=== PATIENT | male | born 1995 | race Caucasian/White ===

== ENCOUNTER 2017-05-15 02:29 | Emergency (ER) | payer OTHER ==
[2017-05-15 02:58] VITALS: BP 0/0
== END 2017-05-15 02:40 | disposition left against medical advice (07) ==
LOC: ED 02:29
DX: S05.30XA Ocular laceration without prolapse or loss of intraocular tissue, unspecified eye, initial encounter (principal); Z53.21 Procedure and treatment not carried out due to patient leaving prior to being seen by health care provider; X58.XXXA Exposure to other specified factors, initial encounter; Y92.9 Unspecified place or not applicable
CPT/HCPCS: 99281

== ENCOUNTER 2017-05-15 17:52 | Emergency (ER) | payer OTHER ==
[2017-05-15 18:08] VITALS: BP 136/88
[2017-05-15] MEDS ORDERED: Lidocaine 1% MPF* 2 ML VIAL INJ ONE (18:37)
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
--- NOTE | 2017-05-15 19:05 | RAD ---
INDICATION: Left orbital injury COMPARISON: None TECHNIQUE: Multiple views the orbits were obtained. FINDINGS: There is no plain radiographic evidence of orbital injury. The remaining visualized facial bones also demonstrate a normal plain radiographic appearance. There may be best ethmoid sinus disease. The remainder of the precise paranasal sinuses are clear IMPRESSION: NO ACUTE PLAIN RADIOGRAPHIC ABNORMALITIES OF THE ORBITAL STRUCTURES. IF THERE WAS SIGNIFICANT TRAUMATIC INJURY OR IF THERE IS PERSISTENT CONCERN, CONSIDER CT IMAGING
== END 2017-05-15 19:53 | disposition home or self-care (01) ==
LOC: UCEAST 17:52
DX: S01.112A Laceration without foreign body of left eyelid and periocular area, initial encounter (principal); S06.0X0A Concussion without loss of consciousness, initial encounter; Y04.0XXA Assault by unarmed brawl or fight, initial encounter; Y93.89 Activity, other specified; Y92.9 Unspecified place or not applicable; I10 Essential (primary) hypertension
CPT/HCPCS: 12011; 70200; 99211; G0463